=== PATIENT | male | born 1980 | race Caucasian/White ===

== ENCOUNTER → 2016-06-18 | Outpatient (CLI) | payer OTHER ==
[2016-06-18 08:02] LABS: Anisocytosis Moderate; Basophils # (A) 0.1 k/uL (0-0.2); Basophils % (A) 1 %; CH 22.7; CHCM 28.5; Eosinophils # (A) 0.2 k/uL (0-0.7); Eosinophils % (A) 3 %; HCT 36.4 % (39.0-53.0); HDW 3.81; HGB 10.5 gm/dL (13.0-17.5); Hypochromasia Marked; Luc % (Auto) 4; Lymphocytes # (A) 1.1 k/uL (1.0-4.8); Lymphocytes % (A) 13 %; MCH 23.1 pg (25.0-35.0); MCV 79.8 fL (80.0-100.0); Mean Platelet Volume 8.3; Microcytosis Moderate; Monocytes # (A) 0.5 k/uL (0-1.0); Monocytes % (A) 6 %; Neutrophils # (A) 6.1 k/uL (1.3-7.7); Neutrophils % (A) 74 %; Poikilocytosis Slight; RBC 4.56 m/uL (4.30-5.90); RDW 20.7 % (11.5-15.5); WBC 8.2 k/uL (3.8-10.6); WBC (Perox) 8.75
[2016-06-18 10:50] LABS: ALT 36 U/L (21-72); AST 22 U/L (17-59); Alkaline Phosphatase 57 U/L (38-126); Anion Gap 11 mmol/L; Blood Urea Nitrogen 11 mg/dL (9-20); Calcium 9.3 mg/dL (8.4-10.2); Carbon Dioxide 28 mmol/L (22-30); Chloride 106 mmol/L (98-107); Cholesterol 135 mg/dL (<200); Glucose 105 mg/dL (74-99); HDL Cholesterol 37 mg/dL (40-60); Iron 23 ug/dL (49-181); Non-African American GFR(MDRD) >60 (>60 ml/min/1.73 sqM); Potassium 4.3 mmol/L (3.5-5.1); Sodium 145 mmol/L (137-145); Total Bilirubin 0.4 mg/dL (0.2-1.3); Total Protein 7.1 g/dL (6.3-8.2); Triglycerides 97 mg/dL (<150)
[2016-06-18 11:06] LABS: % Iron Saturation 5.8 % (20-50); Total Iron Binding Capacity 399 ug/dL (261-462)
[2016-06-18 11:17] LABS: Hemoglobin A1C 5.1 % (4.2-6.1)
== END | disposition home or self-care (01) ==
LOC: LABWHC1 07:16
PROVIDERS: ATTEND Family Medicine
DX: Z00.00 Encounter for general adult medical examination without abnormal findings (principal); D62 Acute posthemorrhagic anemia
CPT/HCPCS: 36415; 80053; 80061; 82306; 82728; 83036; 83540; 83550; 84443; 85025

== ENCOUNTER → 2017-06-30 | Outpatient (CLI) | payer OTHER ==
[2017-06-30 07:27] LABS: HCT 42.2 % (39.0-53.0); MCH 27.7 pg (25.0-35.0); MCHC 33.1 g/dL (31.0-37.0); MCV 83.5 fL (80.0-100.0); Platelet Count 218 k/uL (150-450); RBC 5.05 m/uL (4.30-5.90); RDW 15.7 % (11.5-15.5); WBC 5.2 k/uL (3.8-10.6)
[2017-06-30 07:32] LABS: ALT 52 U/L (21-72); AST 41 U/L (17-59); Albumin 4.1 g/dL (3.5-5.0); Alkaline Phosphatase 77 U/L (38-126); Anion Gap 11 mmol/L; Blood Urea Nitrogen 14 mg/dL (9-20); Calcium 9.6 mg/dL (8.4-10.2); Carbon Dioxide 28 mmol/L (22-30); Chloride 104 mmol/L (98-107); Cholesterol 180 mg/dL (<200); Glucose 113 mg/dL (74-99); HDL Cholesterol 36 mg/dL (40-60); LDL Cholesterol,Calculated 118 mg/dL (0-99); Potassium 4.7 mmol/L (3.5-5.1); Sodium 143 mmol/L (137-145); Total Bilirubin 0.5 mg/dL (0.2-1.3); Triglycerides 128 mg/dL (<150)
[2017-06-30 19:42] LABS: Hemoglobin A1C 5.9 % (4.0-6.0)
== END | disposition home or self-care (01) ==
LOC: LABWHC1 06:38
PROVIDERS: ATTEND Family Medicine
DX: Z00.00 Encounter for general adult medical examination without abnormal findings (principal)
CPT/HCPCS: 36415; 80053; 80061; 82306; 83036; 84443; 85027

== ENCOUNTER → 2018-01-10 | Outpatient (CLI) | payer OTHER ==
[2018-01-10 14:51] LABS: Basophils % (A) 1 %; Eosinophils # (A) 0.2 k/uL (0-0.7); Eosinophils % (A) 3 %; HGB 11.1 gm/dL (13.0-17.5); Hypochromasia Marked; Lymphocytes # (A) 1.5 k/uL (1.0-4.8); Lymphocytes % (A) 28 %; MCH 24.6 pg (25.0-35.0); MCHC 30.7 g/dL (31.0-37.0); Mean Platelet Volume 8.3; Monocytes # (A) 0.3 k/uL (0-1.0); Monocytes % (A) 6 %; Neutrophils # (A) 3.2 k/uL (1.3-7.7); Neutrophils % (A) 60 %; Platelet Count 238 k/uL (150-450); RDW 15.5 % (11.5-15.5); WBC 5.3 k/uL (3.8-10.6)
[2018-01-10 19:12] LABS: Iron Saturation 5.29 (15.00-50.00)
== END | disposition home or self-care (01) ==
LOC: LABWHC1 14:10 → EDSTATUS 15:25
PROVIDERS: ATTEND Family Medicine
DX: D64.9 Anemia, unspecified (principal); R79.0 Abnormal level of blood mineral
CPT/HCPCS: 36415; 82728; 83540; 83550; 85025

== ENCOUNTER 2018-06-16 08:03 | Day surgery (SDC) | payer OTHER ==
[2018-06-14 15:23] VITALS: BMI 41.1
[~2018-06-16 08:03] MED LIST: LACTATED RINGERS 1,000 ML IV SCH
[2018-06-16 09:03] VITALS: RESP 16; TEMP 97
[2018-06-16] MEDS ORDERED: LIDOCAINE 1% INJ 10MG/ML (20 ML MDV) ONE (09:15)
[2018-06-16] MEDS ORDERED: PROPOFOL 10 MG/ML 20 ML VIAL IV ONE (09:15)
--- NOTE | 2018-06-16 09:29 | P.PCN ---
Date of Procedure: 06/16/18 Procedure(s) Performed: BRIEF HISTORY: Patient is a 37-year-old, pleasant, male, scheduled for an upper endoscopy as a part of evaluation of persistent iron deficiency anemia and intermittent black-colored stools. The patient was diagnosed with severe iron deficiency anemia in 2017 with a hemoglobin of 5 g/dL and underwent an upper endoscopy as well as colonoscopy at [facility] including a small bowel capsule endoscopy record the patient was also normal. He received IV iron infusions and his hemoglobin normalized. About 6 months ago he was noted to have anemia with hemoglobin of 10 and this seemed for more iron infusions. Labs from last week showed a hemoglobin of 9. He started having black tarry stools for the last few weeks. He is hence scheduled for repeat upper endoscopy today.. PROCEDURE PERFORMED: Esophagogastroduodenoscopy with biopsy. PREOPERATIVE DIAGNOSIS: Recurrent iron deficiency anemia. IV sedation per anesthesia. PROCEDURE: After informed consent was obtained, the patient was brought into the endoscopy unit. IV sedation was administered by Anesthesia under continuous monitoring. Initially the Olympus GIF-140 video endoscope was inserted into the mouth. Esophagus intubated without any difficulty. It was gradually advanced into the stomach and duodenum and carefully examined. The bulb and the second part of the duodenum appeared normal. Multiple biopsies were done from the duodenum to rule out celiac disease. The scope at this time was withdrawn to the stomach, adequately insufflated with air, and upon careful examination, mucosa of the antrum, body appeared normal. However on retroflexion there was a moderate to large size hiatal hernia noted. Approximately half of the stomach was in the chest cavity. There were multiple Leonardo erosions noted at the diaphragmatic hiatus. The, cardia and the fundus appeared normal. The scope was then withdrawn into the esophagus. The GE junction was located at 40 cm from the incisors. There was a 2-3 mm island of Brambila's appearing mucosa just proximal to the GE junction and this was biopsied. The rest of the esophagus appeared normal. There were no erosions or ulcerations seen and the patient tolerated the procedure well. IMPRESSION: 1. Large sized hiatal hernia with multiple Leonardo erosions at the diaphragmatic hiatus. 2. Small island of Brambila's appearing mucosa just proximal to the GE junction status post biopsy. RECOMMENDATIONS: The findings of this examination were discussed with the patient as well as his family. He was advised to follow with the biopsy results. He will be seen in office in 3-4 weeks. It appears in the rectum and iron deficiency anemia is most likely related to multiple Leonardo erosions related to hiatal hernia causing occult GI blood loss. At this time I will schedule him for a small bowel capsule endoscopy to ensure is no other small bowel pathology causing occult blood loss.
[2018-06-16 09:47] VITALS: PULSE 82
[2018-06-16 10:26] VITALS: BP 129/85
== END 2018-06-16 10:40 | disposition home or self-care (01) ==
LOC: ORWHC2ENDO 08:03
PROVIDERS: ATTEND Internal Medicine Gastroenterology
DX: D50.9 Iron deficiency anemia, unspecified (principal); K22.70 Barrett's esophagus without dysplasia; K44.9 Diaphragmatic hernia without obstruction or gangrene; Z79.899 Other long term (current) drug therapy; K21.9 Gastro-esophageal reflux disease without esophagitis
CPT/HCPCS: 88305; 43239; J2001; J2704

== ENCOUNTER → 2018-06-22 | Outpatient (CLI) | payer OTHER ==
[2018-06-22 08:06] LABS: Anisocytosis Slight; Basophils % (A) 1 %; Eosinophils # (A) 0.2 k/uL (0-0.7); Eosinophils % (A) 4 %; HCT 37.1 % (39.0-53.0); HGB 11.5 gm/dL (13.0-17.5); Hypochromasia Marked; Lymphocytes # (A) 1.3 k/uL (1.0-4.8); Lymphocytes % (A) 29 %; MCH 26.7 pg (25.0-35.0); MCV 86.1 fL (80.0-100.0); Mean Platelet Volume 7.5; Monocytes # (A) 0.3 k/uL (0-1.0); Monocytes % (A) 6 %; Neutrophils # (A) 2.6 k/uL (1.3-7.7); Neutrophils % (A) 58 %; Platelet Count 291 k/uL (150-450); Poikilocytosis Slight; RBC 4.31 m/uL (4.30-5.90); RDW 19.5 % (11.5-15.5); WBC 4.5 k/uL (3.8-10.6)
[2018-06-22 11:29] LABS: Albumin 4.2 g/dL (3.80-4.90); Anion Gap 8.2 mmol/L (4.00-12.00); Calcium 9.5 mg/dL (8.7-10.3); Carbon Dioxide 26.8 mmol/L (21.6-31.8); Globulin 2.1 g/dL (1.6-3.3); LDL Cholesterol,Calculated 85.4 mg/dL (0.0-131.0); Potassium 4.2 mmol/L (3.5-5.5); Total Bilirubin 0.4 mg/dL (0.2-1.2); Total Protein 6.3 g/dL (6.2-8.2); VLDL Calculation 26.6 mg/dL (5.00-40.00)
[2018-06-22 11:37] LABS: Vitamin D 25 Hydroxy 19.6 ng/mL (30.0-100.0)
[2018-06-22 12:56] LABS: Iron Saturation 116.52 (15.00-50.00)
[2018-06-22 14:36] LABS: Hemoglobin A1C 5.1 % (4.0-6.0)
== END ==
LOC: LABWHC1 06:38
PROVIDERS: ATTEND Family Medicine
DX: Z00.00 Encounter for general adult medical examination without abnormal findings (principal); D50.9 Iron deficiency anemia, unspecified
CPT/HCPCS: 36415; 80053; 80061; 82306; 82728; 83036; 83540; 83550; 84443; 85025

== ENCOUNTER → 2018-07-25 | Outpatient (CLI) | payer OTHER ==
--- NOTE | 2018-07-25 08:46 | FL ---
EXAMINATION TYPE: FL barium swallow DATE OF EXAM: 07/25/2018 CLINICAL HISTORY: Paraesophageal hernia. Presurgical evaluation. TECHNIQUE: A double contrast esophagram is performed utilizing air and barium. A total of 1 minute and 26 seconds of fluoroscopic time was utilized during procedure. 37 images were saved. COMPARISON: None FINDINGS: The esophagus shows normal motility. There is irregularity of the distal esophageal mucosa with Z-line noted near the mid mediastinum. Partial intrathoracic stomach is also noted from the kno wn paraesophageal hernia. Mild degree gastroesophageal reflux was seen on real-time examination with Valsalva. No stricture is identified. IMPRESSION: 1. Partial intrathoracic stomach relating to the known paraesophageal hernia. 2. Distal esophageal mucosal irregularity that may relate to moderate to severe esophagitis or small ulcerations. Correlate with recent endoscopy. 3. Mild degree gastroesophageal reflux on real-time imaging.
== END ==
LOC: RADXRMAIN 07:50
PROVIDERS: ATTEND Surgery
DX: K44.9 Diaphragmatic hernia without obstruction or gangrene (principal); K21.9 Gastro-esophageal reflux disease without esophagitis
CPT/HCPCS: 74220